=== PATIENT | female | born 1965 | race Caucasian/White ===

== ENCOUNTER 2017-08-30 08:41 | Emergency (ER) | payer BC, OTHER ==
[2017-08-30 08:54] VITALS: BP 184/100
[2017-08-30] MEDS ORDERED: Proparacaine 0.5% OPHTH.SOL* 15 ML BTL RIGHT EYE ONE (09:54)
[2017-08-30] MEDS ORDERED: Fluorescein Sodium TOPICAL* 1 MG TEST OPHTHALMIC ONE (09:54)
[2017-08-30] MEDS ORDERED: BSS OPTH.SOL* BTL OPHTHALMIC ONE (09:59)
[2017-08-30] MEDS ORDERED: Tetracaine 0.5% OPTH.SOL 15ML* BTL ONE (10:01)
[2017-08-30] MEDS ORDERED: BSS OPTH.SOL* BTL ONE (10:01)
--- NOTE | 2017-08-30 10:02 | UC ---
Eye Complaint HPI - HPI Summary HPI Summary: Patient presents with complaints of right eye pain, and tearing. She states she was in her kitchen yesterday when something got in her eye. She states she rinsed it out, and the symptoms continued to progress with discomfort, tearing and a sensation that something was in her eye.She went to bed and thought it would get better overnight and it did not. She states this morning the symptoms were still present so she comes in for evaluation. She denies any change in vision, eye trauma, history of glaucoma. - History of Current Complaint Chief Complaint: UCEye Stated Complaint: FB IN EYE Time Seen by Provider: 08/30/17 09:53 Hx Obtained From: Patient Hx Last Menstrual Period: 07/03/17 Onset/Duration: Sudden Onset, Lasting Hours Timing: Days Severity Initially: Mild Severity Currently: Moderate Character: Foreign Body Sensation Aggravating Factor(s): Light, Blinking Associated Signs And Symptoms: Positive: Negative - Risk Factors Penetrating Injury Risk Factor: Negative Acute Glaucoma Risk Factors: Negative Optic Artery Occlusion Risk Factors: Negative - Allergies/Home Medications Allergies/Adverse Reactions: Allergies Allergy/AdvReac Type Severity Reaction Status Date / Time Bacitracin Allergy Intermediate Rash Verified 08/30/17 08:45 Neomycin Allergy Intermediate Rash Verified 08/30/17 08:45 Sulfa Drugs Allergy Intermediate Rash Verified 08/30/17 08:45 Penicillins Allergy Unknown See Comment Verified 08/30/17 08:45 PMH/Surg Hx/FS Hx/Imm Hx Previously Healthy: Yes - Surgical History Surgical History: Yes Surgery Procedure, Year, and Place: uterine polyp removed - Family History Known Family History: Positive: Cardiac Disease, Hypertension, Diabetes, Other - lung cancer - Social History Occupation: Employed Full-time Lives: Alone Alcohol Use: Occasionally Substance Use Type: None Smoking Status (MU): Never Smoked Tobacco - Immunization History Most Recent Influenza Vaccination: [id number] Most Recent Tetanus Shot: UTD Review of Systems Constitutional: Negative Skin: Negative Eyes: Drainage, Eye Redness ENT: Negative Respiratory: Negative Cardiovascular: Negative Gastrointestinal: Negative Genitourinary: Negative Motor: Negative Neurovascular: Negative Musculoskeletal: Negative Neurological: Negative Psychological: Negative All Other Systems Reviewed And Are Negative: Yes Physical Exam Triage Information Reviewed: Yes Vital Signs: Initial Vital Signs Temp 98.4 F 08/30/17 08:48 Pulse 75 10/12/17 08:48 Resp 16 08/30/17 08:48 BP 184/100 08/30/17 08:48 Pulse Ox 98 08/30/17 08:48 Eyes: Positive: Conjunctiva Inflamed, Other: - sclera with medial injection, tearing noted with upper and lower soft tissue swelling. eom's itnact. ENT Exam: Normal Dental Exam: Normal Neck exam: Normal Neck: Positive: 1 Respiratory Exam: Normal Cardiovascular Exam: Normal Abdominal Exam: Normal Musculoskeletal Exam: Normal Neurological Exam: Normal Psychological Exam: Normal Skin Exam: Normal Eye Complaint Course/Dx - Course Course Of Treatment: Patient presents with complaints of nontraumatic right eye discomfort and tearing. Tetracaine eye drops were instilled, and stained. There was not obvious foreign body seem there was a corneal abrasion noted on the medial aspect of the right eye. She reported immediate relief of pain. I RX cipro opth gtts, and recommend she follow up with her eye doctor within 24 hours. She reported understanding and was in agreement with the discharge plan. - Differential Dx/Diagnosis Differential Diagnosis/HQI/PQRI: Corneal Abrasion Provider Diagnoses: corneal abrasion Discharge - Discharge Plan Condition: Stable Disposition: HOME Prescriptions: Ciprofloxacin 0.3% OPTH.MELLISA* [Cipro 0.3% Opth*] 1 drop RIGHT EYE Q2H #1 btl Patient Education Materials: Corneal Abrasion (ED) Referrals: Jenny Ruiz MD [Primary Care Provider] - Josh Richardson MD [Medical Doctor] - Additional Instructions: Your blood pressure was elevated at this visit. That does not mean you have hypertension, it is probably due to your current condition. Please follow up with your primary care provider.
[2017-08-30] MEDS ORDERED: Tetracaine 0.5% OPTH.SOL 4 ML* 1 DROP BTL RIGHT EYE SCH (10:30)
== END 2017-08-30 10:25 | disposition home or self-care (01) ==
LOC: UCEAST 08:41
DX: S05.01XA Injury of conjunctiva and corneal abrasion without foreign body, right eye, initial encounter (principal); Z88.0 Allergy status to penicillin; Z88.2 Allergy status to sulfonamides; X58.XXXA Exposure to other specified factors, initial encounter; Y92.9 Unspecified place or not applicable
CPT/HCPCS: 99212; A9270-GY; G0463

== ENCOUNTER 2018-10-05 10:16 | Emergency (ER) | payer OTHER ==
--- NOTE | 2018-10-05 11:38 | UC ---
Hypertension HPI - HPI Summary HPI Summary: Has felt unwell for a week, with facial and ear pressure, dizzy, mild visual blurring, and frontal headache which relieved with ibuprofen. Long hx of borderline elevated blood pressures, and took BP yesterday where she found it to be 168/95 HR 84, 174/101 this morning. No sided weakness, photophobia, or dysarthria. No sweats, nausea, chest pain or heart palpitations. Uses fish oil, calcium and vit D supplements, but has not been using decongestants or herbal supplements. - History of Current Complaint Chief Complaint: UCGeneralIllness Stated Complaint: ELEVATED B/P Time Seen by Provider: 10/05/18 11:25 Hx Obtained From: Patient Hx Last Menstrual Period: 07/03/17 ?: No Onset/Duration: Gradual Onset, Lasting Days Timing: Constant Reported Blood Pressure Prior To Arrival:: 174/101 Aggravating Factor(s): Nothing Alleviating Factor(s): Rest Associated Signs And Symptoms: Positive: Recent Stress - increased stress due to work deadlines and 4 teens at home., Headaches - Risk Factors Cardiac Risk Factors: Hypertension, Family History - Allergies/Home Medications Allergies/Adverse Reactions: Allergies Allergy/AdvReac Type Severity Reaction Status Date / Time bacitracin Allergy Rash Verified 10/05/18 10:29 neomycin Allergy Rash Verified 10/05/18 10:29 Penicillins Allergy See Comment Verified 10/05/18 10:29 Sulfa (Sulfonamide Allergy Rash Verified 10/05/18 10:29 Antibiotics) Home Medications: Home Medications L.acidoph,Paracasei, B.lactis [Probiotic] 1 each PO 10/05/18 [History] PMH/Surg Hx/FS Hx/Imm Hx - Additional Past Medical History Additional PMH: obese Previously Healthy: Yes - Surgical History Surgical History: Yes Surgery Procedure, Year, and Place: uterine polyp removed - Family History Known Family History: Positive: Cardiac Disease, Hypertension, Diabetes, Other - lung cancer - Social History Occupation: Employed Part-time Lives: With Family Alcohol Use: Occasionally Substance Use Type: None Smoking Status (MU): Never Smoked Tobacco - Immunization History Most Recent Influenza Vaccination: [id number] Most Recent Tetanus Shot: UTD Review of Systems All Other Systems Reviewed And Are Negative: Yes Constitutional: Positive: Other - malaise, low energy Skin: Positive: Negative Eyes: Positive: Blurred Vision ENT: Positive: Ear Ache - ear pressure, no tinnitus Respiratory: Positive: Negative Cardiovascular: Positive: Negative Gastrointestinal: Positive: Negative Genitourinary: Positive: Negative, Other - perimenopausal, oligomenorrheic, minimal sx. Motor: Positive: Negative Neurovascular: Positive: Negative Musculoskeletal: Positive: Negative Neurological: Positive: Headache Psychological: Positive: Negative Is Patient Immunocompromised?: No Physical Exam Triage Information Reviewed: Yes Appearance: No Pain Distress - No acute distress, alert and oriented., Obese Vital Signs: Initial Vital Signs Temp 98.2 F 10/05/18 10:23 Pulse 100 10/05/18 10:23 Resp 18 10/05/18 10:23 BP 184/104 10/05/18 10:23 Pulse Ox 97 10/05/18 10:23 Eyes: Positive: Conjunctiva Clear ENT: Positive: Pharynx normal, TMs normal Neck: Positive: Supple, Nontender, No Lymphadenopathy Respiratory: Positive: Lungs clear, Normal breath sounds Cardiovascular: Positive: RRR, No Murmur Abdomen Description: Positive: Nontender, No Organomegaly, Soft Musculoskeletal Exam: Normal Neurological Exam: Other - no pronator drift. Neurological: Positive: Alert, Muscle Tone Normal Psychological Exam: Normal Skin Exam: Normal Hypertension Course/Dx - Course Course Of Treatment: begin lisinopril for treatment of hypertension, labs to rule out renal and thyroid disease, establish baseline cholesterol - Differential Dx/Diagnosis Differential Diagnosis/HQI PQRI: Hypertension, Hypertensive Crisis, Hypertensive Urgency, Renal Disease Provider Diagnoses: hypertension, moderate to severe. Discharge - Sign-Out/Discharge Documenting (check all that apply): Patient Departure All imaging exams completed and their final reports reviewed: No Studies - Discharge Plan Condition: Stable Disposition: HOME Prescriptions: Lisinopril [Prinivil] 5 mg PO DAILY #30 tablet Patient Education Materials: Chronic Hypertension (ED) Referrals: Jenny Ruiz MD [Primary Care Provider] - Additional Instructions: Begin lisinopril today, ensuring that you rest and lie low for several hours after the first dose, which sometimes drops the blood pressure and makes you dizzy. This is a one time likelihood only. We have drawn lab work which will be available tomorrow afternoon. You can call for the reports, but you will be called if there is any abnormality which would be a reason not to take lisinopril. You have a scheduled follow up on 10/30 with [facility]; I suggest signing a release for the provider there to receive the labs. As discussed, regular aerobic walking, weight loss and ensuring a modest intake of sodium (2 grams per day) can help to lower blood pressure. - Billing Disposition and Condition Condition: STABLE Disposition: Home
[2018-10-05 12:16] VITALS: BP 170/98
[2018-10-05 15:06] LABS: ABS Basophils 0.1 10^3/ul (0-0.2); ABS Eosinophils 0.1 10^3/ul (0-0.6); ABS Lymphocytes 2.2 10^3/ul (1.0-4.8); ABS Monocytes 0.6 10^3/ul (0-0.8); ABS Neutrophils 6.8 10^3/ul (1.5-7.7); ABS Nucleated RBC 0 10^3/ul; Eosinophil % 0.9 % (0-6); Hematocrit 45 % (35-47); Lymphocyte % 22.5 % (25-47); Mean Corpuscular HGB Conc 34 g/dl (31-36); Mean Corpuscular Hemoglobin 28 pg (27-31); Mean Corpuscular Volume 82 fL (80-97); Mean Platelet Volume 7.7 fL (7.4-10.4); Nucleated Red Blood Cells % 0.1; Platelet Count 363 10^3/ul (150-450); Red Blood Count 5.47 10^6/ul (4.00-5.40); Red Cell Distribution Width 13 % (10.5-15); White Blood Count 9.8 10^3/ul (3.5-10.8)
[2018-10-05 15:21] LABS: EGFR Non-African American 96.1 (>60)
--- NOTE | 2018-10-06 09:10 | UC ---
- Progress Note Progress Note: Labs reviewed, CBC CMP is within normal limits Her lipid profile is abnormal with LDL cholesterol of 196 On and to call the patient and inform her of the results, plan to follow up with primary care doctor for better control. Discharge - Sign-Out/Discharge Documenting (check all that apply): Post-Discharge Follow Up All imaging exams completed and their final reports reviewed: No Studies - Discharge Plan Condition: Stable Disposition: HOME Prescriptions: Lisinopril [Prinivil] 5 mg PO DAILY #30 tablet Patient Education Materials: Chronic Hypertension (ED) Referrals: Jenny Ruiz MD [Primary Care Provider] - Additional Instructions: Begin lisinopril today, ensuring that you rest and lie low for several hours after the first dose, which sometimes drops the blood pressure and makes you dizzy. This is a one time likelihood only. We have drawn lab work which will be available tomorrow afternoon. You can call for the reports, but you will be called if there is any abnormality which would be a reason not to take lisinopril. You have a scheduled follow up on 10/30 with [facility]; I suggest signing a release for the provider there to receive the labs. As discussed, regular aerobic walking, weight loss and ensuring a modest intake of sodium (2 grams per day) can help to lower blood pressure. - Billing Disposition and Condition Condition: STABLE Disposition: Home
== END 2018-10-05 12:42 | disposition home or self-care (01) ==
LOC: UCEAST 10:16
DX: I10 Essential (primary) hypertension (principal); R51 Headache; Z88.0 Allergy status to penicillin; Z88.2 Allergy status to sulfonamides
CPT/HCPCS: 36415; 80053; 80061; 84443; 85025; 99212; G0463